=== PATIENT | male | born 1935 | race Asian ===

== ENCOUNTER 2023-02-12 21:48 | Inpatient (IN) | payer OTHER, BC ==
[~2023-02-12] VITALS: Ht 162.6 cm; Wt 76.7 kg
[2023-02-12 21:56] VITALS: BP 120/57; PULSE 72; RESP 16; TEMP 98.5; O2SAT 97
[2023-02-12 22:41] LABS: BASOPHILS % (AUTO) 0.2 % (0.0-2.0); EOSINOPHILS % (AUTO) 0.4 % (0.0-4.0); HEMATOCRIT 37.5 % (36-52); HEMOGLOBIN 12.5 g/dL (12.0-18.0); MEAN CORPUSCULAR HEMOGLOBIN 31 pg (27-31); MEAN CORPUSCULAR HGB CONC 33 g/dL (33-37); MEAN CORPUSCULAR VOLUME 93.7 fL (80-94); MONOCYTES # (AUTO) 0.8 K/uL (0.8-1.0); MONOCYTES % (AUTO) 10.2 % (1.7-9.3); NEUTROPHILS # (AUTO) 6.1 K/uL (1.8-7.7); NEUTROPHILS % (AUTO) 76.2 % (42.2-75.2); PLATELET COUNT (AUTO) 179 K/uL (140-450); RED BLOOD CELL COUNT(AUTO) 4.01 MIL/uL (4.20-6.10); RED CELL DISTRIBUTION WIDTH 13.7 % (11.6-13.7)
[2023-02-12 22:56] LABS: ALANINE AMINOTRANSFERASE 28 U/L (12-78); ALBUMIN 3.2 g/dL (3.4-5.0); ALKALINE PHOSPHATASE 50 U/L (50-136); ANION GAP 8.8 (8-16); ASPARTATE AMINOTRANSFERASE 32 U/L (15-37); CALCIUM 8.9 mg/dL (8.5-10.1); CARBON DIOXIDE 33.6 mmol/L (21-32); CHLORIDE 105 mmol/L (98-107); GLUCOSE 105 mg/dL (74-106); POTASSIUM 3.4 mmol/L (3.5-5.1); SODIUM SERUM 144 mmol/L (136-145); TOTAL BILIRUBIN 0.6 mg/dL (0.0-1.0); TOTAL PROTEIN, SERUM 6.7 g/dL (6.4-8.2); UREA NITROGEN, BLOOD 20 mg/dL (7-18)
[2023-02-12 23:22] LABS: CREATINE KINASE, TOTAL 632 U/L (39-308); MAGNESIUM 2.1 mg/dL (1.8-2.4); PHOSPHORUS 3.4 mg/dL (2.5-4.9); THYROID STIMULATING HORMONE 0.41 uIU/mL (0.34-3.74)
[2023-02-12 23:28] LABS: LACTIC ACID 1.3 mmol/L (0.4-2.0)
[2023-02-13 00:19] LABS: APPEARANCE,URINE CLEAR (CLEAR); BILIRUBIN,URINE NEGATIVE (NEGATIVE); BLOOD, URINE NEGATIVE (NEGATIVE); COLOR,URINE YELLOW (YELLOW); LEUKOCYTE ESTERASE ,URINE 1+ (NEGATIVE); NITRITE, URINE NEGATIVE (NEGATIVE); PROTEIN,URINE NEGATIVE (NEGATIVE); UGLUCOSE NEGATIVE (NEGATIVE)
[2023-02-13 00:49] LABS: BACTERIA,URINE >30 (MANY) /HPF (None Seen); MUCUS,URINE 1+ /LPF (None Seen); RBC,URINE 0-5 /HPF (0-5); SQUAMOUS EPITHELIAL CELL,UR 0-3 (FEW) /LPF (0-3 (FEW))
[2023-02-13 03:19] VITALS: O2SAT 97
[2023-02-13] MEDS ORDERED: guaiFENesin DM 200/20 MG-10 ML 10 ML UDC PO PRN (03:35)
[2023-02-13] MEDS ORDERED: NACL 0.9% 1,000 ML IV SCH (03:35)
[2023-02-13] MEDS ORDERED: ONDANSETRON 4 MG/2 ML VIAL IM/IVP PRN (03:35)
[2023-02-13] MEDS ORDERED: DOCUSATE SODIUM 100 MG GELCAP PO PRN (03:35)
[2023-02-13] MEDS ORDERED: ACETAMINOPHEN 325 MG TAB PO PRN (03:35)
[2023-02-13] MEDS ORDERED: HYDROcodone/APAP 7.5/325 MG 1 TAB PO PRN (03:35)
[2023-02-13 04:20] VITALS: BP 141/85; PULSE 66; PULSE 75; RESP 18; TEMP 98.3; O2SAT 94; O2SAT 97
[2023-02-13] MEDS: POTASSIUM CHLORIDE 10 MEQ TABER PO PRN (06:23)
[2023-02-13 06:53] LABS: ALANINE AMINOTRANSFERASE 30 U/L (12-78); ALBUMIN 3.1 g/dL (3.4-5.0); ALKALINE PHOSPHATASE 47 U/L (50-136); ANION GAP 7.9 (8-16); ASPARTATE AMINOTRANSFERASE 32 U/L (15-37); CALCIUM 8.7 mg/dL (8.5-10.1); CARBON DIOXIDE 32.2 mmol/L (21-32); CHLORIDE 106 mmol/L (98-107); CREATININE 0.9 mg/dL (0.6-1.3); GLUCOSE 102 mg/dL (74-106); POTASSIUM 3.1 mmol/L (3.5-5.1); SODIUM SERUM 143 mmol/L (136-145); TOTAL BILIRUBIN 0.9 mg/dL (0.0-1.0); TOTAL PROTEIN, SERUM 6.7 g/dL (6.4-8.2); UREA NITROGEN, BLOOD 16 mg/dL (7-18)
[2023-02-13 07:19] LABS: BASOPHILS % (AUTO) 0.4 % (0.0-2.0); EOSINOPHILS # (AUTO) 0.1 K/uL (0-0.4); EOSINOPHILS % (AUTO) 1.4 % (0.0-4.0); HEMATOCRIT 37.9 % (36-52); HEMOGLOBIN 12.6 g/dL (12.0-18.0); LYMPHOCYTES # (AUTO) 1.4 K/uL (2.0-11.5); LYMPHOCYTES % (AUTO) 19.7 % (20.5-51.1); MEAN CORPUSCULAR HEMOGLOBIN 31 pg (27-31); MEAN CORPUSCULAR HGB CONC 33 g/dL (33-37); MEAN CORPUSCULAR VOLUME 94.5 fL (80-94); MONOCYTES # (AUTO) 0.7 K/uL (0.8-1.0); MONOCYTES % (AUTO) 10.2 % (1.7-9.3); NEUTROPHILS # (AUTO) 4.7 K/uL (1.8-7.7); NEUTROPHILS % (AUTO) 68.3 % (42.2-75.2); PLATELET COUNT (AUTO) 181 K/uL (140-450); RED BLOOD CELL COUNT(AUTO) 4.01 MIL/uL (4.20-6.10); RED CELL DISTRIBUTION WIDTH 13.9 % (11.6-13.7); WHITE BLOOD COUNT (AUTO) 6.9 K/uL (4.8-10.8)
[2023-02-13 08:00] VITALS: BP 151/77; PULSE 63; PULSE 65; RESP 16; TEMP 98.1; O2SAT 95
[2023-02-13] MEDS ORDERED: POTASSIUM CHLORIDE 10 MEQ TABER PO SCH (08:25)
[2023-02-13] MEDS ORDERED: ASPIRIN 81 MG TAB.CHEW PO SCH (09:00)
[2023-02-13] MEDS: PANTOPRAZOLE 40 MG TABEC PO SCH (09:50)
[2023-02-13] MEDS: TAMSULOSIN 0.4 MG CAP PO SCH (09:50)
[2023-02-13 12:00] VITALS: BP 128/68; PULSE 67; PULSE 72; RESP 18; TEMP 97.1; O2SAT 95
[2023-02-13 16:00] VITALS: BP 150/78; PULSE 66; PULSE 69; RESP 18; TEMP 97.8; O2SAT 100
[2023-02-13 20:00] VITALS: BP 135/66; PULSE 66; PULSE 71; PULSE 76; RESP 18; TEMP 98.4; O2SAT 94; O2SAT 97
[2023-02-13] MEDS: ZOLPIDEM 5 MG TAB PO PRN (20:21)
[2023-02-13] MEDS ORDERED: ATORVASTATIN 20 MG TAB PO SCH (21:00)
[2023-02-14] VITALS (8 sets, daily range): BP systolic 123–172; BP diastolic 55–87; PULSE 68–95; RESP 18–20; TEMP 98–100.5; O2SAT 94–100
[2023-02-14] MEDS ORDERED: hydrALAZINE 20 MG/ML VIAL IVP PRN (00:35)
[2023-02-14] MEDS: PANTOPRAZOLE 40 MG TABEC PO SCH (09:29)
[2023-02-14] MEDS: POTASSIUM CHLORIDE 10 MEQ TABER PO PRN (09:31)
[2023-02-14] MEDS: TAMSULOSIN 0.4 MG CAP PO SCH (09:32)
[2023-02-15] VITALS: BP 147/78; PULSE 80; PULSE 82; RESP 18; TEMP 98.7; O2SAT 94
[2023-02-15] MEDS: ZOLPIDEM 5 MG TAB PO PRN (00:30)
[2023-02-15 04:00] VITALS: BP 153/70; PULSE 75; PULSE 79; RESP 18; TEMP 98.2; O2SAT 96
[2023-02-15 06:38] LABS: ANION GAP 14.5 (8-16); CALCIUM 8.7 mg/dL (8.5-10.1); CARBON DIOXIDE 28.3 mmol/L (21-32); CHLORIDE 101 mmol/L (98-107); CREATININE 0.8 mg/dL (0.6-1.3); GLUCOSE 98 mg/dL (74-106); POTASSIUM 3.8 mmol/L (3.5-5.1); SODIUM SERUM 140 mmol/L (136-145); UREA NITROGEN, BLOOD 11 mg/dL (7-18)
[2023-02-15 06:46] LABS: CREATINE KINASE, TOTAL 335 U/L (39-308)
[2023-02-15 06:56] LABS: BASOPHILS # (AUTO) 0.1 K/uL (0.00-0.22); BASOPHILS % (AUTO) 0.7 % (0.0-2.0); EOSINOPHILS # (AUTO) 0.1 K/uL (0-0.4); HEMATOCRIT 38.1 % (36-52); HEMOGLOBIN 12.7 g/dL (12.0-18.0); LYMPHOCYTES # (AUTO) 1.3 K/uL (2.0-11.5); LYMPHOCYTES % (AUTO) 17.3 % (20.5-51.1); MEAN CORPUSCULAR HEMOGLOBIN 31 pg (27-31); MEAN CORPUSCULAR HGB CONC 33 g/dL (33-37); MEAN CORPUSCULAR VOLUME 93.1 fL (80-94); MONOCYTES # (AUTO) 0.7 K/uL (0.8-1.0); MONOCYTES % (AUTO) 9.1 % (1.7-9.3); NEUTROPHILS # (AUTO) 5.2 K/uL (1.8-7.7); NEUTROPHILS % (AUTO) 70.9 % (42.2-75.2); PLATELET COUNT (AUTO) 197 K/uL (140-450); RED BLOOD CELL COUNT(AUTO) 4.09 MIL/uL (4.20-6.10); RED CELL DISTRIBUTION WIDTH 13.7 % (11.6-13.7); WHITE BLOOD COUNT (AUTO) 7.4 K/uL (4.8-10.8)
[2023-02-15 08:00] VITALS: BP 134/68; PULSE 74; RESP 18; TEMP 98.3; O2SAT 97
[2023-02-15] MEDS: PANTOPRAZOLE 40 MG TABEC PO SCH (09:56)
[2023-02-15] MEDS: TAMSULOSIN 0.4 MG CAP PO SCH (09:57)
[2023-02-15 12:00] VITALS: BP 130/58; PULSE 66; RESP 18; TEMP 98.1; O2SAT 96
[2023-02-15 16:00] VITALS: BP 125/59; PULSE 65; RESP 18; TEMP 96.6; O2SAT 95
[2023-02-15 20:00] VITALS: BP 132/52; PULSE 59; PULSE 60; RESP 18; TEMP 97.9; O2SAT 96
[2023-02-16] VITALS (7 sets, daily range): BP systolic 128–148; BP diastolic 53–81; PULSE 59–80; RESP 16–18; TEMP 97.2–98.5; O2SAT 94–96
[2023-02-16 05:24] LABS: BASOPHILS # (AUTO) 0.1 K/uL (0.00-0.22); BASOPHILS % (AUTO) 1.2 % (0.0-2.0); EOSINOPHILS # (AUTO) 0.2 K/uL (0-0.4); EOSINOPHILS % (AUTO) 3.2 % (0.0-4.0); HEMATOCRIT 34.6 % (36-52); HEMOGLOBIN 11.5 g/dL (12.0-18.0); LYMPHOCYTES # (AUTO) 1.6 K/uL (2.0-11.5); LYMPHOCYTES % (AUTO) 26.7 % (20.5-51.1); MEAN CORPUSCULAR HEMOGLOBIN 31 pg (27-31); MEAN CORPUSCULAR HGB CONC 33 g/dL (33-37); MONOCYTES # (AUTO) 0.6 K/uL (0.8-1.0); MONOCYTES % (AUTO) 9.7 % (1.7-9.3); NEUTROPHILS # (AUTO) 3.5 K/uL (1.8-7.7); NEUTROPHILS % (AUTO) 59.2 % (42.2-75.2); PLATELET COUNT (AUTO) 228 K/uL (140-450); RED BLOOD CELL COUNT(AUTO) 3.72 MIL/uL (4.20-6.10); RED CELL DISTRIBUTION WIDTH 13.8 % (11.6-13.7)
[2023-02-16] MEDS: PANTOPRAZOLE 40 MG TABEC PO SCH (09:04)
[2023-02-16] MEDS: TAMSULOSIN 0.4 MG CAP PO SCH (09:04)
[2023-02-17 04:00] VITALS: BP 143/71; PULSE 87; RESP 17; TEMP 98.4; O2SAT 96
[2023-02-17 05:34] LABS: BASOPHILS % (AUTO) 0.5 % (0.0-2.0); EOSINOPHILS # (AUTO) 0.1 K/uL (0-0.4); EOSINOPHILS % (AUTO) 0.9 % (0.0-4.0); HEMATOCRIT 38.8 % (36-52); LYMPHOCYTES # (AUTO) 1.4 K/uL (2.0-11.5); LYMPHOCYTES % (AUTO) 14.3 % (20.5-51.1); MEAN CORPUSCULAR HEMOGLOBIN 31 pg (27-31); MEAN CORPUSCULAR HGB CONC 34 g/dL (33-37); MEAN CORPUSCULAR VOLUME 92.7 fL (80-94); MONOCYTES # (AUTO) 0.9 K/uL (0.8-1.0); MONOCYTES % (AUTO) 8.7 % (1.7-9.3); NEUTROPHILS # (AUTO) 7.5 K/uL (1.8-7.7); NEUTROPHILS % (AUTO) 75.6 % (42.2-75.2); PLATELET COUNT (AUTO) 243 K/uL (140-450); RED BLOOD CELL COUNT(AUTO) 4.18 MIL/uL (4.20-6.10); RED CELL DISTRIBUTION WIDTH 13.5 % (11.6-13.7); WHITE BLOOD COUNT (AUTO) 9.9 K/uL (4.8-10.8)
[2023-02-17 08:00] VITALS: PULSE 87; RESP 18; O2SAT 95
[2023-02-17] MEDS: PANTOPRAZOLE 40 MG TABEC PO SCH (08:52)
[2023-02-17] MEDS: TAMSULOSIN 0.4 MG CAP PO SCH (08:52)
[2023-02-17] MEDS ORDERED: ASPI-1856 PO (09:08)
[2023-02-17] MEDS ORDERED: TAMS0.4C96 PO (09:09)
[2023-02-17 10:45] VITALS: BP 156/75; TEMP 97.4
[2023-02-17 11:17] VITALS: O2SAT 95
[2023-02-18] MEDS ORDERED: ECOTRIN 81 MG TABEC PO SCH (09:00)
== END 2023-02-17 13:45 | disposition home health service (06) | DRG 689 ==
LOC: MED 21:48 → MTU 02-13 03:35
PROVIDERS: ADMIT Student in an Organized Health Care Education/Training Program; ATTEND Student in an Organized Health Care Education/Training Program
DX: N39.0 Urinary tract infection, site not specified (principal); I21.A1 Myocardial infarction type 2; R65.10 Systemic inflammatory response syndrome (SIRS) of non-infectious origin without acute organ dysfunction; I10 Essential (primary) hypertension; M60.9 Myositis, unspecified
CPT/HCPCS: 36415; 70450; 71045; 78582; 80048; 80053; 81001; 82550; 82553; 83605; 83735; 83880; 84100; 84443; 84484; 85025; 85379; 87040; 87081; 87086; 92526; 93005; 93970; 97112; 97116; 97530; J0360; J0696; J1644; J7060; Q0092